=== PATIENT | male | born 1995 | race Caucasian/White ===

== ENCOUNTER 2018-06-03 11:51 | Emergency (ER) | payer MEDICAID ==
[~2018-06-03] VITALS: Ht 177.8 cm; Wt 89.4 kg
[2018-06-03 12:02] VITALS: Ht 177.8 cm; Wt 89.4 kg
[2018-06-03 12:49] LABS: BASOPHIL % 0.4 % (0-2); CALCIUM 9.1 mg/dL (8.5-10.1); CARBON DIOXIDE 27.2 mmol/L (21-32); CHLORIDE SERUM 104 mmol/L (98-107); GFR1 > 60 mL/min; GLUCOSE SERUM 95 mg/dL (74-106); PLATELET COUNT 248 x10^3mcL (130-400); POTASSIUM SERUM 3.9 mmol/L (3.5-5.1); RED CELL DISTRIBUTION WIDTH 12.8 % (11.5-14.5); SODIUM SERUM 141 mmol/L (136-145)
[2018-06-03 12:50] LABS: microscopic required? YES; urine erythrocyte NEGATIVE (NEGATIVE)
[2018-06-03 15:23] VITALS: BP 128/73
== END 2018-06-03 15:23 | disposition home or self-care (01) ==
LOC: ED 11:51
PROVIDERS: Emergency Medicine
DX: N50.811 Right testicular pain (principal)
CPT/HCPCS: 87491; 87591; J0696; J1885

== ENCOUNTER 2020-01-10 14:15 | Emergency (ER) | payer SELFPAY ==
[~2020-01-10] VITALS: Ht 180.3 cm; Wt 93.9 kg
[2020-01-10 14:37] VITALS: Ht 180.3 cm; Wt 93.9 kg
[2020-01-10 16:00] VITALS: BP 124/76
== END 2020-01-10 16:00 | disposition home or self-care (01) ==
LOC: ED 14:15
DX: S61.412A Laceration without foreign body of left hand, initial encounter (principal); W25.XXXA Contact with sharp glass, initial encounter; Y93.89 Activity, other specified; Y92.89 Other specified places as the place of occurrence of the external cause; Y99.8 Other external cause status
CPT/HCPCS: 90715; J2001; Q0092